=== PATIENT | female | born 1940 | race Caucasian/White ===

== ENCOUNTER → 2017-07-24 | Outpatient (CLI) | payer MEDICARE, OTHER ==
--- NOTE | ~2017-07-24 | PUL ---
PATIENT'S NAME: CARLEY [facility] AGE: 76 Y [address] ROOM: [place] [address] LOCATION: [facility] ADMIT DATE: 07/24/2017 Pulmonary DISCHARGE DATE: FAMILY PHYSICIAN: Vini Tipton MD ATTENDING PHYSICIAN: Vini Tipton NAME OF PROCEDURE: Sleep study PROCEDURE DATE: 07/24/17 TECH: LEOPOLDO Ghosh TEST #: [facility] [place] [id number] TECHNICAL PARAMETERS: The patient was studied using International 10/20 measuring system. While the patient was studied, there was continuous monitoring of EEG (8 leads), EOG (2 leads), EKG (3 leads), submental EMG (3 leads), tibial (4 leads), respiratory inductive plethysmography (RIP) for thoracic and abdominal effort, oral and nasal airflow with a thermocouple and pressure transducer, and oximetry. The science technicians also performed visual and auditory observations noting things like body position, patient's status, breath sounds, artifact, snoring level and patient comments. Continuous sound was monitored using a 2-way speaker system and video monitoring was performed using an infrared camera. Review of the entire study was performed epoch by epoch utilizing a single epoch and multiple epoch capability sleep system. MEDICAL HISTORY: Patient is a 76-year-old woman with daytime sleepiness and snoring. SLEEP STAGE SUMMARY: The patient was studied for 457 minutes of which she slept 424 minutes. She fell asleep in 19 minutes and slept for 93% of the night. Sleep architecture revealed a decline in slow wave and REM sleep. RESPIRATORY SUMMARY: Oxygen saturations ranged from 79-96% and were below 88% for 8 minutes. There were 41 apneas and 28 hypopneas. These were equally distributed between central and obstructive events. EKG SUMMARY: Average heart rate during sleep 80 beats per minute. LIMB MOVEMENT SUMMARY: Frequent periodic limb movements were noted. SUMMARY: Mild mixed sleep apnea. Probable significant periodic limb movement disorder. PLAN: Patient certainly warrants treatment for the limb movements. These are PATIENT'S NAME: CARLEY [facility] AGE: 76 Y [address] ROOM: [place] [address] LOCATION: [facility] ADMIT DATE: 07/24/2017 Pulmonary DISCHARGE DATE: FAMILY PHYSICIAN: Vini Tipton MD ATTENDING PHYSICIAN: Vini Tipton probably the most clinically significant abnormality on the study. The mild mixed sleep apnea is not likely contributing to symptoms but may worsen with treatment of the leg movements. Would consider treating the leg movements and repeating this study to ensure no worsening of the sleep apnea. The patient will receive results from the ordering provider. VANESA TREJO MD [facility]/ /[id number] dtt: 08/13/17 0756 , Vanesa Trejo. dtd: 07/30/17 1600
== END | disposition disaster alternative care site (69) ==
LOC: GSLP 20:19
DX: G47.10 Hypersomnia, unspecified (principal); G47.39 Other sleep apnea

== ENCOUNTER → 2017-08-08 | Outpatient (CLI) | payer MEDICARE, OTHER | LOC: GKIC 09:59 | DX: M50.322 Other cervical disc degeneration at C5-C6 level (principal) ==